=== PATIENT | male | born 1945 | race Hispanic/Latino ===

== ENCOUNTER 2020-09-01 08:20 | Observation (INO) | payer OTHER, SELFPAY ==
[2020-09-01 08:34] VITALS: BP 196/90; PULSE 65; RESP 15; TEMP 36.8; O2SAT 100; BMI 24.4
--- NOTE | 2020-09-01 08:34 | ED.NEUROSD ---
HPI - Neuro Symptoms/Deficit General Chief Complaint: Neuro Symptoms/Deficit Stated Complaint: slurring his words Time Seen by Provider: 09/01/20 08:34 Source: patient and family () Mode of arrival: Ambulatory Limitations: no limitations History of Present Illness HPI Narrative: This is a 75-year-old male comes emergency department with complaint of difficulty with speech, slurring words and feeling little bit off balance. People shunt states he is able to walk but feels like he has to hang onto things to sit down. Patient notes some tingling in his tongue he denies any numbness or tingling elsewhere. He denies any new weakness in his extremities. He does not appreciate any facial droop. Patient states he noticed this 730 this morning, he states that he had gotten out of the shower and as he was trying to talk with his family he noticed he had some mild speech issues. He denies headache, no vision changes, no chest pain or shortness of breath no nausea or vomiting there GI or urinary symptoms. Patient patient is insulin-dependent diabetic, he is on prednisone daily for rheumatoid arthritis, he takes medication for hypertension, dyslipidemia. Patient has had prior strokes noted on his past head imaging but never had physical symptoms. He denies any kidney disease. He had a thoracotomy several decades ago for chest injury denies any other surgery. No tobacco, occasional alcohol, no illicit. His primary care is Dr. Sharmila tenorio at [facility]. Patient denies any allergies to medications. He is accompanied by his . Related Data Home Medications Medication Instructions Recorded Confirmed Novolin 70/30 U-100 Insulin 25 units SUBCUT BEDTIME 09/01/20 09/01/20 Novolin 70/30 U-100 Insulin 35 units SUBCUT DAILY 09/01/20 09/01/20 amlodipine [Norvasc] 2.5 mg PO DAILY 09/01/20 09/01/20 atorvastatin 10 mg PO DAILY 09/01/20 09/01/20 levothyroxine 125 mcg PO DAILY 09/01/20 09/01/20 lisinopril-hydrochlorothiazide 20 - 25 tab PO DAILY 09/01/20 09/01/20 prednisone 1 mg PO DAILY 09/01/20 09/01/20 Allergies Allergy/AdvReac Type Severity Reaction Status Date / Time No Known Drug Allergies Allergy Verified 09/01/20 10:38 Review of Systems Review of Systems ROS Unobtainable: All systems reviewed & are unremarkable except as noted in HPI and below Patient History Medical History (Updated 09/01/20 @ 14:24 by Eligio Chavez MD) Amputation of toe of left foot Hearing loss Hyperlipidemia Hypertension Hypothyroidism Influenza A Parkinsonism Rheumatoid arthritis TIA (transient ischemic attack) Type 2 diabetes mellitus Surgical History (Updated 09/01/20 @ 14:20 by Eligio Chavez MD) H/O amputation of lesser toe History of appendectomy History of lung surgery Family History (Updated 09/01/20 @ 14:22 by Eligio Chavez MD) Father Alcohol abuse Mother Bladder cancer Social History household members: spouse Smoking Status: Never smoker Smoking Status: Never smoker alcohol intake frequency: a few times a month Substance Use Type: does not use Exam Narrative Exam Narrative: GEN: well nourished, well appearing male, alert and oriented x 3, patient appears to be in mild distress. HEENT: Atraumatic, pupils are equal round reactive to light, extraocular movements are intact, nares are clear. no facial droop. Dysarthria. HEART: Regular rate and rhythm without murmur, clicks, rubs. No carotid bruits, pulses are equal in upper and lower extremities LUNGS:Lungs clear to auscultation, no wheezes, rales, crackles, chest moves symmetrically ABD:bowel sounds normal, soft, non-tender, no guarding, rebound, rigidity, no masses noted, no hepatosplenomegaly MSCL: Non-tender, no muscle atrophy, muscles strength 5/5 upper and lower extremities, full range of motion, normal gait NEURO:CN 2-12 intact, sensation normal, finger nose finger test normal, heel anderson test normal Skin: No rash, erythema skin changes. Initial Vital Signs Initial Vital Signs: Vital Signs Temperature 98.2 F 09/01/20 08:34 Pulse Rate 65 09/01/20 08:34 Respiratory Rate 15 09/01/20 08:34 Blood Pressure 196/90 H 09/01/20 08:34 Pulse Oximetry 100 09/01/20 08:34 Scores NIH Stroke Scale Level of Conciousness: Alert, keenly responsive Ask month/age: Answers both questions correctly. Open/close eyes, close hand: Performs both tasks correctly Best gaze horizontal: Normal Visual aguilar: No visual loss Facial palsy: Normal symetrical movement Left arm drift: No drift for full 10 sec Right arm drift: No drift for full 10 sec Left leg drift: No drift for full 5 sec Right leg drift: No drift for full 5 sec Limb ataxia: Absent Sensory on face/arms/legs: Normal, no sensory loss Best language: No aphasia, normal Dysarthria: Mild to mod,some slurring Extinction or inattention: No abnormality Total NIH Stroke scale score: 1 Course Orders Ordered: ED Orders 09/01/20 10:25 COVID19 - ADMIT (MAINTENANCE CARPENTER swab/PCR) Stat 09/01/20 15:00 Urine Drug Screen, Rapid Stat Amlodipine Besylate (Amlodipine 5 Mg Tablet) 2.5 mg PO DAILY EVELIO Aspirin (Aspirin Ec 81 Mg Tablet) 81 mg PO DAILY [facility] Atorvastatin Calcium (Atorvastatin 20 Mg Tablet) 80 mg PO BEDTIME EVELIO Clopidogrel Bisulfate (Clopidogrel 75 Mg Tablet) 75 mg PO DAILY [facility] Enoxaparin Sodium (Enoxaparin 40 Mg/0.4 Ml Syringe) 40 mg SUBCUT DAILY [facility] Hydrochlorothiazide (Hydrochlorothiazide 25 Mg Tablet) 25 mg PO DAILY [facility] Levothyroxine Sodium (Levothyroxine 125 Mcg Tablet) 125 mcg PO DAILY [facility] Lisinopril (Lisinopril 20 Mg Tablet) 20 mg PO DAILY [facility] Naloxone HCl (Naloxone 0.4 Mg/Ml Vial) 0.2 mg IV Q2MIN PRN PRN Reason: Opiate Reversal Nf - Novolin 70/30 U -100 Insulin 35 Units 35 units SUBCUT DAILY [facility] Nf - Novolin 70/30 U -100 Insulin 25 Units 25 units SUBCUT BEDTIME EVELIO Last Admin: 09/01/20 17:12 Dose: 25 units Documented by: MATEO Prednisone (Prednisone 1 Mg Tablet) 1 mg PO DAILY [facility] Discontinued Medications Aspirin (Aspirin 81 Mg Chew Tab) 324 mg PO NOW ONE Stop: 09/01/20 09:56 Last Admin: 09/01/20 14:00 Dose: 324 mg Documented by: RY Clopidogrel Bisulfate (Clopidogrel 75 Mg Tablet) 300 mg PO NOW ONE Stop: 09/01/20 09:56 Last Admin: 09/01/20 14:00 Dose: 300 mg Documented by: RY Glipizide (Glipizide 5 Mg Tablet) 5 mg PO BIDAC EVELIO Sodium Chloride (Normal Saline 0.9%) 1,000 mls @ 150 mls/hr IV CONT EVELIO Last Infusion: 09/01/20 10:55 Dose: 0 mls/hr Documented by: CARLOS EDUARDO Admin: 09/01/20 10:05 Dose: 150 mls/hr Documented by: CARLOS EDUARDO Labetalol HCl (Labetalol 20 Mg/4 Ml Syringe) 5 mg IV NOW ONE Stop: 09/01/20 09:56 Last Admin: 09/01/20 13:58 Dose: Not Given Documented by: RY Reevaluation(s) Reevaluation #1: Neurology from telestroke, does not feel patient is acutely occluded but stenosed. He did review their images of the based on patient's exam he would not tPA this patient at the time. He does recommend high-dose statin as well as Plavix 300 mg and aspirin for dual platelet therapy. He feels patient would be best kept for observation for 24 hours. He does not give recommendation whether they should be transferred or stay locally and would leave this up to our facility and comfort level. Time: 09:56 Reevaluation #2: Dr. Chavez, kindly accepts patient for admission. We did discuss that radiology read the CTA as occluded on the basilar vessel. Tele Stroke Neurology also reviewed these images independently and evaluated the patient physically through the tele stroke video monitor and feels that it is not fully occluded but stenosed/narrowed and does not feel the patient warrants acute intervention. Patient's symptoms today are not consistent with a occluded basilar vessel. Patient was recommended to have observation, dual platelet therapy and high-dose statin. This was all related. Vital Signs Vital signs: Vital Signs - 8 hr 09/01/20 08:34 Temperature 98.2 F Pulse Rate 65 Respiratory Rate 15 Blood Pressure 196/90 H Pulse Oximetry 100 MDM - Neuro Symptoms/Deficit Lab Data Attestation: I reviewed the patient's lab results. Result diagrams: 09/01/20 08:30 09/01/20 08:30 Labs: Lab Results 09/01/20 09/01/20 09/01/20 Range/Units 08:30 08:30 08:30 WBC 9.1 (4.5-11.0) X10^3/uL RBC 4.13 L (4.5-5.9) X10^6/uL Hgb 13.3 L (13.5-17.5) g/dL Hct 38.5 L (41-53) % MCV 93.1 (80-100) fL MCH 32.2 (26-34) PG MCHC 34.6 (30-36) % RDW 15.4 H (11.6-14.8) % Plt Count 219 (150-400) X10^3/uL Neut % (Auto) 67.4 (50-75) % Lymph % (Auto) 21.9 L (25-40) % [place] % (Auto) 5.6 (3-14) % Eos % (Auto) 4.0 (2-4) % Baso % (Auto) 1.1 (0-2) % Neut # (Auto) 6100 (0431-2533) /uL Lymph # (Auto) 2000 (4158-2087) /uL [place] # (Auto) 500 (0-900) /uL Eos # (Auto) 400 (0-450) /uL Baso # (Auto) 100 (0-100) /uL PT 11.9 (10.1-12.7) SECONDS INR 1.1 (0.9-1.3) APTT 33 (26.4-36.2) SECONDS Sodium 134 L (137-145) mmol/L Potassium 4.2 (3.4-5.1) mmol/L Chloride 101 (98-107) mmol/L Carbon Dioxide 24 (22-32) mmol/L BUN 31 H (9-20) mg/dL Creatinine 1.47 H (0.66-1.25) mg/dL Estimated GFR 46.6 L (>60) mL/min BUN/Creatinine Ratio 21.1 (6-22) Glucose 174 H (80-110) mg/dL Hemoglobin A1c (4.0-6.0) % Calcium 9.5 (8.4-10.2) mg/dL Total Creatine Kinase 62 (55-170) U/L CK-MB (CK-2) TNP CK-MB (CK-2) Rel Index TNP Troponin I < 0.012 (0.01-0.034) ng/mL Ethyl Alcohol < 10 ( - 10) mg/dL 09/01/20 Range/Units 08:30 WBC (4.5-11.0) X10^3/uL RBC (4.5-5.9) X10^6/uL Hgb (13.5-17.5) g/dL Hct (41-53) % MCV (80-100) fL MCH (26-34) PG MCHC (30-36) % RDW (11.6-14.8) % Plt Count (150-400) X10^3/uL Neut % (Auto) (50-75) % Lymph % (Auto) (25-40) % [place] % (Auto) (3-14) % Eos % (Auto) (2-4) % Baso % (Auto) (0-2) % Neut # (Auto) (2381-6859) /uL Lymph # (Auto) (5281-1742) /uL [place] # (Auto) (0-900) /uL Eos # (Auto) (0-450) /uL Baso # (Auto) (0-100) /uL PT (10.1-12.7) SECONDS INR (0.9-1.3) APTT (26.4-36.2) SECONDS Sodium (137-145) mmol/L Potassium (3.4-5.1) mmol/L Chloride (98-107) mmol/L Carbon Dioxide (22-32) mmol/L BUN (9-20) mg/dL Creatinine (0.66-1.25) mg/dL Estimated GFR (>60) mL/min BUN/Creatinine Ratio (6-22) Glucose (80-110) mg/dL Hemoglobin A1c 9.7 H (4.0-6.0) % Calcium (8.4-10.2) mg/dL Total Creatine Kinase (55-170) U/L CK-MB (CK-2) CK-MB (CK-2) Rel Index Troponin I (0.01-0.034) ng/mL Ethyl Alcohol ( - 10) mg/dL ECG Data Attestation: I personally reviewed and interpreted this ECG as follows: Prior ECG tracings: available for review Interpretation: Sinus rhythm with premature supraventricular complexes, right bundle branch block. Rate of 61 P are 202 QRS of [address]TC [address] No acute ST changes appreciated. Patient has prior which appears similar. MDM Narrative Medical decision making narrative: This is a 75-year-old male comes in with complaint of dysarthria, some tingling his tongue and mild balance symptoms. Patient denies any other symptoms currently. He states his symptoms seem to be mildly improving. He is a hypertensive at 187 in the room. NIH is 1 patient has normal gait. Head CT does not show any acute changes, CTA shows possible basilar artery occlusion but discussed with tele radiology who feels this is stenosed but not occluded. Patient was given aspirin and Plavix here in the department. Recommendations were reviewed led to our hospitalist who kindly accepts. Patient was not a tPA case with NIH of only 1, resolving symptoms here in the department. Discharge Plan Departure Patient Disposition: Admitted as Observation Clinical Impression: Cerebrovascular accident, Basilar artery stenosis Admit Date/Time: 09/01/20 10:09 Admit Provider: Eligio Chavez
--- NOTE | 2020-09-01 08:35 | DI.CT.S_ITS ---
PROCEDURE: CT STROKE INDICATIONS: slurred speech, balance issues. TECHNIQUE: Noncontrast 4.5 mm thick angled axial sections acquired from the foramen magnum to the vertex, with coronal reformats. For radiation dose reduction, the following was used: automated exposure control, adjustment of mA and/or kV according to patient size. COMPARISON: None. FINDINGS: Image quality: Excellent. CSF spaces: Basal cisterns are patent. No extra-axial fluid collections. The ventricles are symmetric in size and shape. Brain: No intracranial bleeds or masses. There is moderate cerebral volume loss for age, with resultant ventricular and sulcal prominence. There are prominent periventricular and deep white matter chronic small vessel ischemic changes. There is intracranial internal carotid artery atherosclerosis. Skull and face: Calvarium and visualized facial bones appear intact, without suspicious lesions. Sinuses: Scattered ethmoid and bilateral maxillary sinus mucosal thickening. Remaining paranasal sinuses and mastoids appear clear. IMPRESSION: CT head without acute intracranial abnormalities. Moderate age related senescent changes and sequela of chronic small vessel ischemic disease. Findings were discussed with Dr. Padilla of the emergency room at 0931 hrs. This study fulfills neurological imaging criteria for inclusion or exclusion of acute stroke therapies based on available published neurological guidelines. Dictated by: Rojas Solomon M.D. on 09/01/2020 at 9:27 Approved by: Rojas Solomon M.D. on 09/01/2020 at 9:32
[2020-09-01 08:43] LABS: Add Manual Diff / Slide Review NO; Basophils Absolute Auto 100 /uL (0-100); Basophils Percent Auto 1.1 % (0-2); Eosinophils Absolute Auto 400 /uL (0-450); Hematocrit 38.5 % (41-53); Hemoglobin 13.3 g/dL (13.5-17.5); Lymphocytes Absolute Auto 2000 /uL (1100-4500); Lymphocytes Percent Auto 21.9 % (25-40); Mean Corpuscular HGB Conc 34.6 % (30-36); Mean Corpuscular Hemoglobin 32.2 PG (26-34); Mean Corpuscular Volume 93.1 fL (80-100); Monocytes Absolute Auto 500 /uL (0-900); Monocytes Percent Auto 5.6 % (3-14); Neutrophils Absolute Auto 6100 /uL (1500-7000); Neutrophils Percent Auto 67.4 % (50-75); Platelet Count 219 X10^3/uL (150-400); Red Blood Cell Count 4.13 X10^6/uL (4.5-5.9); Red Cell Distribution Width 15.4 % (11.6-14.8); White Blood Cell Count 9.1 X10^3/uL (4.5-11.0)
--- NOTE | 2020-09-01 08:48 | DI.CT.S_ITS ---
PROCEDURE: CT ANGIO HEAD AND NECK INDICATIONS: dysarthria, balance issues TECHNIQUE: After the administration of intravenous contrast, 1 mm thick sections acquired from the aortic arch through the [place]. Post-contrast 4.5 mm thick sections then re-acquired from the foramen magnum to the vertex. 3-dimensional zkhkhhh-tykdosiip-ddxocaypwz (MIP) and/or volume rendering reformats were acquired of the central intracranial vasculature and neck separately. COMPARISON: [facility], CT, CT STROKE, 09/01/2020, 8:43. FINDINGS: Image quality: Excellent. BRAIN: CSF spaces: Ventricles are normal in size and shape. Basal cisterns are patent. No extra-axial fluid collections. Brain: No midline shift. No intracranial bleeds or masses. Mcpherson-white matter interface appears intact. Skull and face: Calvarium and facial bones appear intact, without suspicious lesions. Orbits appear normal. Age-related volume loss and moderate to severe small vessel ischemic change. Sinuses: Sinuses and mastoids are clear. Previous nasal sinus surgery. HEAD CT ANGIOGRAPHY: Anterior circulation: Intracranial internal carotid arteries are normal in size and flow. The flow within the paired anterior cerebral arteries is normal and symmetric. The flow within the middle cerebral arteries is normal and symmetric. The anterior communicating artery is seen. No aneurysms are seen. Posterior circulation: The distal left vertebral artery is visible. The right vertebral artery appears to end in PICA, or may be occluded. There is occlusion of basilar artery. There is reconstitution at the distal basilar artery . The right posterior cerebral artery is patent. The left posterior cerebral artery has a origin off of the anterior circulation and is patent. NECK CT ANGIOGRAPHY: Carotid system: The great vessels demonstrate a bovine arch anatomy as they arise from the aortic arch. The origins of the common carotid arteries appear patent. The common carotid arteries demonstrate normal caliber and courses. Dense bilateral carotid bifurcation calcifications. A proximal right internal carotid artery stenosis may be as much as 70%. There is mild left internal carotid stenosis, less than 50%. Posterior circulation: The bilateral vertebral arteries are diffusely diminutive from their origins. The right vertebral artery appears to end in PICA. The left vertebral artery supplies a relatively small basilar artery which acutely occludes, and reconstitutes distally. The right posterior cerebral artery is widely patent. The left posterior cerebral artery has a origin off the anterior circulation, and is patent. Soft tissues: Visualized neck soft tissues demonstrate no suspicious abnormalities. There is bilateral pulmonary fibrosis and biapical centrilobular emphysema. There is a large cystic space anterior to the aorta and heart which likely represents a anterior left lung bullous lesion. Bones: No suspicious bony lesions. Visualized cervical spine appears normally aligned. IMPRESSION: 1. Age-related volume loss and moderate to severe small vessel ischemic change 2. No evidence acute stroke, hemorrhage, or mass. 3. Both vertebral arteries are diffusely diminutive. The right vertebral artery appears to end in PICA. 4. 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 5. Both posterior cerebral arteries are patent. The left posterior cerebral artery has a origin off the anterior circulation. 6. A proximal right internal carotid artery stenosis may be is greatest 70%. 7. Pulmonary interstitial fibrosis and centrilobular emphysema. 8. Large bullous lesion likely involving the anterior left lung, anterior to the aorta and heart. Comment: The finding of an acute occlusion of the basilar artery was discussed with Dr. Padilla on 09/01/20 at 0847 hours [place] daylight time Any quantitative measurements of stenosis were performed using NASCET criteria. Dictated by: Fuentes Chavez M.D. on 09/01/2020 at 8:39 Approved by: Fuentes Chavez M.D. on 09/01/2020 at 8:58
[2020-09-01 08:54] LABS: BUN Creatinine Ratio 21.1 (6-22); Blood Urea Nitrogen 31 mg/dL (9-20); Calcium 9.5 mg/dL (8.4-10.2); Carbon Dioxide 24 mmol/L (22-32); Chloride 101 mmol/L (98-107); Creatine Kinase 62 U/L (55-170); Estimated Glomerular Filt Rate 46.6 mL/min (>60); Ethanol (ETOH) < 10 mg/dL; Glucose 174 mg/dL (80-110); HEMOLYSIS < 15 (0-50); Potassium 4.2 mmol/L (3.4-5.1); Sodium 134 mmol/L (137-145)
[2020-09-01 09:05] LABS: INR 1.1 (0.9-1.3); Prothrombin Time 11.9 SECONDS (10.1-12.7); Troponin I < 0.012 ng/mL (0.01-0.034)
[2020-09-01 09:08] LABS: PTT Partial Thromboplastin Tim 33 SECONDS (26.4-36.2)
--- NOTE | 2020-09-01 10:00 | DI.MRI.S_ITS ---
PROCEDURE: MR STROKE Pre- and post-contrast brain MRI, non-contrast brain MR angiogram, pre- and postcontrast neck MR angiogram INDICATIONS: cva, mild dysarthria, mild balance change TECHNIQUE: Brain: Noncontrast axial T1 spin echo, axial T2 fast spin echo, sagittal and axial FLAIR, coronal T2 fast spin echo, axial gradient echo, axial diffusion and ADC through the brain. After the administration of contrast, axial 3D VIBE of the cranial vasculature and brain. Brain MRA: Non-contrast 3-D time of flight MR angiogram, with multiple xklfbuk-nvynxeqsy-diufsloswb (MIP) reformats performed. Neck MRA: Axial and sagittal TruFISP through the neck. Coronal dynamic MR angiogram during administration of contrast in the arterial and venous phases, with 3-dimenstional vftentl-hmscuutst-xneggdqipe (MIP) reformats constructed from subtraction images. [facility], CT, CT STROKE, 09/01/2020, 8:43. ARISON: FINDINGS: Image quality: Excellent. BRAIN: CSF spaces: Ventricles are normal in size and shape. Basal cisterns are patent. No extra-axial fluid collections. Brain: No intracranial bleeds or mass effects. Mcpherson-white matter interface is normal. Age-related volume loss and moderate to severe small vessel ischemic change. Diffusion weighted images show no acute ischemic insults. Brainstem appears normal. Normal intravascular flow voids are present. No abnormal intracranial enhancement. Skull and face: Calvarial marrow signal is normal. Orbits appear normal. Sinuses: Minimal patchy right mastoid opacification. BRAIN MR ANGIOGRAM: Anterior circulation: Intracranial internal carotid arteries are normal in size and enhancement. The flow within the paired anterior cerebral arteries is normal and symmetric. The flow within the middle cerebral arteries is normal and symmetric. The anterior communicating artery is seen. No stenoses, occlusions, or aneurysms. Posterior circulation: Vertebral arteries are somewhat diminutive bilaterally. The right vertebral artery ends in PICA. The left vertebral artery gives rise to a small caliber basilar artery which occludes. Most of the basilar artery is occluded. There is reconstitution at the level of the origin of the posterior cerebral arteries. The right posterior cerebral artery arises off the basilar artery. The left posterior cerebral artery has a component from the basilar artery but is predominantly from origin off the anterior circulation. NECK MR ANGIOGRAM: Carotids: Great vessels demonstrate a bovine arch anatomy as they arise from the aortic arch. The origins of the common carotid arteries appear patent. The calibers and courses of both common carotid arteries are normal. There is a 70% proximal right internal carotid artery stenosis. The left internal carotid artery is patent. Posterior circulation: The origins of the vertebral arteries appear patent. More superior portions of both vertebral arteries demonstrate normal course and caliber, and join to form a normal appearing basilar artery. Miscellaneous: Subclavian arteries appear patent. Pre-contrast images through the neck show no soft tissue abnormalities. IMPRESSION: BRAIN MRI: 1. Age-related volume loss and moderate to severe small vessel is. 2. No evidence of acute stroke, hemorrhage, or mass. BRAIN MR ANGIOGRAM: 1. Normal variant right vertebral artery ends in PICA and right A1 segment anterior cerebral artery is atretic. 2. 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 3. Posterior cerebral arteries are patent. The left posterior cerebral artery is predominantly fed from the anterior circulation. NECK MR ANGIOGRAM: 1. 70% proximal right internal carotid artery stenosis. 2. Bovine arch anatomy. Comment: Findings were discussed with Dr. Padilla at the time of study dictation on 09/01/2020 at 1033 hours [place] daylight time. Dictated by: Fuentes Chavez M.D. on 09/01/2020 at 10:22 Approved by: Fuentes Chavez M.D. on 09/01/2020 at 10:40
[2020-09-01] MEDS: SODIUM CHLORIDE 0.9% 1,000 ML 150 ML IV (10:05)
[2020-09-01 11:00] VITALS: BP 149/84; PULSE 70; RESP 18; TEMP 36.6; O2SAT 98
[2020-09-01 11:18] VITALS: BMI 24.4
[2020-09-01 11:40] LABS: Hemoglobin A1C% w Est Avg Glu 9.7 % (4.0-6.0)
[2020-09-01 11:49] LABS: COVID19 - ADMIT (NP swab/PCR) Negative (Negative)
--- NOTE | 2020-09-01 12:10 | P.HP_ITS ---
History of Present Illness History of Present Illness Date Patient Seen: 09/01/20 Time Patient Seen: 12:15 Chief complaint: slurring his words Narrative: This is a 75-year-old male with hypertension, hyperlipidemia, type 2 diabetes mellitus, a history of TIA and Rheumatoid Arthritis who is admitted for an acute episode of dysarthria. He lives in [place] and was camping locally here with his this morning when they both noticed that he could not pronounce words correctly. He had particular difficulty with the letter S. This began at 7:30 a.m.. He came directly to the ED within the tPA window but the CT angiogram of the neck did not show any stroke and the basilar artery occlusion or stenosis was not in an area that would cause his current symptoms and so the tele [facility] neurologist recommended no tPA (also because the symptoms were so mild and the dysarthria resolved so quickly). 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 He has neurological findings of a left- sided downgoing Babinski and a right tongue deviation that would appear to match a a right-sided lesion caused by the carotid stenosis on the same side. No matching stroke is seen on the MRI. He will be observed on telemetry, we will obtain an echocardiogram and Plavix has been added to his aspirin as recommended by Neurology. The atorvastatin dose will be increased from 10 mg up to 80 mg and his blood pressure medicines will be continued. The A1c is 9.7. The p atient does not appear to be on any treatment for diabetes. Patient History Medical History (Updated 09/01/20 @ 14:24 by Eligio Chavez MD) Amputation of toe of left foot Hearing loss Hyperlipidemia Hypertension Hypothyroidism Influenza A Parkinsonism Rheumatoid arthritis TIA (transient ischemic attack) Type 2 diabetes mellitus Surgical History (Updated 09/01/20 @ 14:20 by Eligio Chavez MD) H/O amputation of lesser toe History of appendectomy History of lung surgery Family & Social History Family History (Updated 09/01/20 @ 14:22 by Eligio Chavez MD) Father Alcohol abuse Mother Bladder cancer Social History: household members spouse Prior Living Arrangements House Safety & Behavioral: Feels Safe in Current Yes Environment Been Physically Hurt or No Threatened By a Person Suicidal Ideation Description None Suicide Plan Description No Plan Tobacco & Substance use: Smoking Status Never smoker alcohol intake frequency a few times a month Substance Use Type does not use Meds Home Medications and Allergies Home Medications Medication Instructions Recorded Confirmed Type Novolin 70/30 U-100 Insulin 35 units SUBCUT DAILY 09/01/20 09/01/20 History amlodipine [Norvasc] 2.5 mg PO DAILY 09/01/20 09/01/20 History atorvastatin 10 mg PO DAILY 09/01/20 09/01/20 History levothyroxine 125 mcg PO DAILY 09/01/20 09/01/20 History lisinopril-hydrochlorothiazide 20 - 25 tab PO DAILY 09/01/20 09/01/20 History prednisone 1 mg PO DAILY 09/01/20 09/01/20 History Allergies Allergy/AdvReac Type Severity Reaction Status Date / Time No Known Drug Allergies Allergy Verified 09/01/20 10:38 Review of Systems Review of Systems Narrative: Positive for dysarthria, slurring of words. Negative for fevers, chills, sweats, coughing, chest pain, dull pain, nausea, vomiting, dysuria, bleeding, rashes, seizures, headaches, trouble walking, new allergies. ROS: Yes All systems reviewed with the patient and are negative except as otherwise documented Exam Vital Signs (past 8 hours): - 09/01/20 08:34 Temperature 98.2 F Pulse Rate 65 Respiratory Rate 15 Blood Pressure 196/90 H Pulse Oximetry 100 Oxygen Delivery Method Room Air Narrative Exam Narrative: He is alert and oriented x3. He is in no apparent distress Pupils are equally round and reactive to light and accommodation Sclerae are pink and nonicteric Extraocular muscles are intact Throat looks normal with slight right-sided tongue deviation No lymph nodes are felt head, neck, supraclavicular area There is no thyromegaly JVD is less than 6 cm No carotid bruits are heard Heart is regular rate and rhythm without murmur Lungs have bibasilar crackles Abdomen is soft, bowel sounds positive, nontender, no organomegaly. Skin has no rash or jaundice Neurological exam Motor function is 5/5 throughout Cranial nerves 2-12 test intact except for slight right-sided tongue deviation Deep tender reflexes are symmetric There is no tremor [id number] pointing is accurate Babinski is upgoing slightly on the left and downgoing on the right Objective Imaging MRI - head: Radiologist's impression: IMPRESSION: BRAIN MRI: 1. Age-related volume loss and moderate to severe small vessel is. 2. No evidence of acute stroke, hemorrhage, or mass. BRAIN MR ANGIOGRAM: 1. Normal variant right vertebral artery ends in PICA and right A1 segment anterior cerebral artery is atretic. 2. 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 3. Posterior cerebral arteries are patent. The left posterior cerebral artery is predominantly fed from the anterior circulation. NECK MR ANGIOGRAM: 1. 70% proximal right internal carotid artery stenosis. 2. Bovine arch anatomy. Labs Result Diagrams: 09/01/20 08:30 09/01/20 08:30 Labs: Laboratory Results - last 24 hr 09/01/20 09/01/20 09/01/20 08:30 08:30 08:30 WBC 9.1 RBC 4.13 L Hgb 13.3 L Hct 38.5 L MCV 93.1 MCH 32.2 MCHC 34.6 RDW 15.4 H Plt Count 219 Neut % (Auto) 67.4 Lymph % (Auto) 21.9 L Charles % (Auto) 5.6 Eos % (Auto) 4.0 Baso % (Auto) 1.1 Neut # (Auto) 6100 Lymph # (Auto) 2000 Charles # (Auto) 500 Eos # (Auto) 400 Baso # (Auto) 100 PT 11.9 INR 1.1 APTT 33 Sodium 134 L Potassium 4.2 Chloride 101 Carbon Dioxide 24 BUN 31 H Creatinine 1.47 H Estimated GFR 46.6 L BUN/Creatinine Ratio 21.1 Glucose 174 H Hemoglobin A1c Calcium 9.5 Total Creatine Kinase 62 CK-MB (CK-2) TNP CK-MB (CK-2) Rel Index TNP Troponin I < 0.012 Ethyl Alcohol < 10 SARS-CoV-2 (PCR) 09/01/20 09/01/20 08:30 10:25 WBC RBC Hgb Hct MCV MCH MCHC RDW Plt Count Neut % (Auto) Lymph % (Auto) Charles % (Auto) Eos % (Auto) Baso % (Auto) Neut # (Auto) Lymph # (Auto) Charles # (Auto) Eos # (Auto) Baso # (Auto) PT INR APTT Sodium Potassium Chloride Carbon Dioxide BUN Creatinine Estimated GFR BUN/Creatinine Ratio Glucose Hemoglobin A1c 9.7 H Calcium Total Creatine Kinase CK-MB (CK-2) CK-MB (CK-2) Rel Index Troponin I Ethyl Alcohol SARS-CoV-2 (PCR) Negative Assessment & Plan Assessment & Plan narrative: This is a 75-year-old male with hypertension, hyperlipidemia, type 2 diabetes mellitus, a history of TIA and Rheumatoid Arthritis who is admitted for an acute episode of dysarthria. TIA, present on admission. Active. -dysarthria with abnormal neurological exam of upgoing left Babinski and right- sided tongue deviation. -MRA shows 70% stenosis of of the right internal carotid artery, also seen on the CT angiogram of the neck. -brain MRI shows no acute CVA -add Plavix 75 mg to the daily aspirin 81 mg per Neurology. -continue blood pressure control with current medications -add glipizide for uncontrolled diabetes type 2 -increase atorvastatin to 80 mg Hypertension, present on admission. Active. -continue amlodipine, lisinopril, hydrochlorothiazide Hyperlipidemia, present on admission. Active. -increase atorvastatin to 80 mg a day Type 2 diabetes mellitus, present on admission. Active. -A1c 9.7 -no current treatment -began glipizide 5 mg b.i.d. and follow blood sugars a.c. and HS Rheumatoid arthritis, present on admission. Chronic -continue prednisone 1 mg daily Hypothyroidism, present on admission. Chronic. -continue levothyroxine Parkinsonism, present on admission. Chronic. -no current treatment Lovenox for DVT prophylaxis Backup decision maker is his , Chantelle Palmer Arvin VTE Deep Vein Thrombosis/Pulmonary Embolism Present on Admission: No
[2020-09-01] MEDS: ASPIRIN 81 MG CHEW TAB 324 MG PO (14:00)
[2020-09-01] MEDS: CLOPIDOGREL 75 MG TABLET 300 MG PO (14:00)
--- NOTE | 2020-09-01 14:14 | DI.ECHO.S_ITS ---
[facility] +---------+ : : [address] : : : : [id number] : : : : Phone: [phone]+ Echocardiogram Report + + :Name: SHAUN WHEAT Study Date: 09/02/2020 Height: 73 in : :[facility] ReadingLocation: Weight: 185 lb : : Gender: Male BSA: 2.1 m2 : :: 1945 Age: 75 yrs BP: 150/79 mmHg: :Reason For Study: TIA : :Ordering Physician: DALIA, : :MARYURI Ann Performed By: Nani Meyers : :Referring: MARYURI GÓMEZ : + + Interpretation Summary Left ventricular systolic function appears normal with an estimated ejection fraction of 55 to 60% without any obvious focal wall motion abnormality. Left ventricular size and wall thickness appear normal with probable normal diastolic function and normal filling pressures. The right ventricle grossly appears normal in size and systolic function. Right ventricular systolic pressure cannot be estimated but CVP is likely around 3 mmHg. The left atrium is at the upper limits of normal in size while right atrial size is normal. There is no Doppler evidence for an interatrial shunt. The mitral valve is mildly calcified with mild mitral regurgitation but there is no other significant functional valvular abnormality. The aortic root is mildly enlarged. Procedure: A two-dimensional transthoracic echocardiogram with color flow and Doppler was performed. The study quality was technically adequate. There is no prior echocardiogram noted for this patient. The patient was in sinus bradycardia with heart rates between 49-57 bpm during the exam. Left Ventricle: The left ventricle appears normal in size, wall thickness, and systolic function without any focal wall motion abnormalities. The ejection fraction is estimated to be 55-60%. Diastolic parameters suggest probable normal left ventricular diastolic function and normal filling pressures. Right Ventricle: The right ventricle is grossly normal size. The right ventricular systolic function is normal. Atria: The left atrium is borderline dilated. Right atrial size is normal. There is no Doppler evidence for an interatrial shunt. Mitral Valve: The mitral valve leaflets are slightly calcified. There is mild mitral regurgitation. Aortic Valve: The aortic valve is not well visualized. The aortic valve is slightly calcified. The aortic valve opens well. There is no aortic valve stenosis. No aortic regurgitation is present. Tricuspid Valve: The tricuspid valve is normal in structure and function. There is trace tricuspid regurgitation. Pulmonary artery pressures cannot be estimated because of the lack of a measurable TR jet velocity but the IVC suggests a CVP of around 3 mmHg. Pulmonic Valve: The pulmonic valve is not well visualized. Great Vessels: The aortic root is mildly dilated. The ascending aorta could not be visualized. The IVC is of normal diameter and collapses greater than 50% with a sniff. This suggests a low right atrial pressure of 3 mm Hg. Pericardium/ Pleura There is no pericardial effusion. There is no pleural effusion. MMode/2D Measurements & Calculations LVIDd: 5.3 cm LVOT diam: 2.4 cm LVIDs: 3.5 cm Ao root diam: 4.0 cm FS: 34.3 % Ao Arch Diam (Prox Trans): 3.1 cm IVSd: 0.95 cm LVPWd: 0.84 cm LV carlin. diameter/BSA (cm/m^2): 2.6 LV sys. diameter/BSA (cm/m^2): 1.7 LA A2 area: 21.7 cm2 RA long axis: 5.1 cm LA A4 area: 18.0 cm2 RA area: 15.2 cm2 LA length (vol): 4.7 cm RA vol: 38.4 ml LA vol: 70.3 ml RA : 18.5 ml/m2 LA vol index: 33.8 ml/m2 IVC diam: 1.5 cm RVD1 (basal): 4.0 cm TAPSE: 1.9 cm Doppler Measurements & Calculations Ao V2 max: 119.0 cm/sec LVOT Max Jay: 70.5 cm/sec Ao V2 mean: 81.7 cm/sec LV V1 max P.0 mmHg Ao max P.7 mmHg LV V1 VTI: 18.4 cm Ao mean P.0 mmHg CINTHYA(I,D): 2.7 cm2 Ao V2 VTI: 30.2 cm CINTHYA(V,D): 2.6 cm2 sev ratio: 0.61 CINTHYA indexed to BSA (cm^2/m^2): 1.3 MV E max jay: 75.8 cm/sec TR max jay: 285.4 cm/sec MV A max jay: 75.0 cm/sec TR max P.6 mmHg MV E/A: 1.0 PA V2 max: 72.8 cm/sec Med Peak E' Jay: 9.4 cm/sec PA V2 mean: 48.7 cm/sec E/E' med: 8.1 PA mean P.1 mmHg Lat Peak E' Jay: 8.5 cm/sec PA pr(Accel): 12.2 mmHg E/E' lat: 8.9 E/e' average: 8.5 MV dec time: 0.22 sec SV(ZENIA): 81.7 ml Reading Physician:09:30 AM
[2020-09-01 15:11] LABS: UR Morphine/Opiate cutoff 300 Negative (Negative); Ur Creatinine Normal (Normal); Ur Specific Gravity Normal (Normal); Urine Amphetamines Negative (Negative); Urine Barbiturates Negative (Negative); Urine Benzodiazepines Negative (Negative); Urine Cocaine Negative (Negative); Urine MDMA Negative (Negative); Urine Methadone Negative (Negative); Urine Methamphetamines Negative (Negative); Urine Oxycodone Negative (Negative); Urine Phencyclidine Negative (Negative); Urine Tetrahydrocannabinol Negative (Negative); Urine Tricyclic Antidepressant Negative (Negative); Urine pH Normal (Normal)
[2020-09-01 16:10] VITALS: BP 150/79; PULSE 56; RESP 16; TEMP 36.4; O2SAT 98
[2020-09-01] MEDS: [UNRECOGNIZED DRUG - OTHER] 25 EACH SUBCUT (17:12)
[2020-09-01 20:05] VITALS: BP 155/75; PULSE 66; RESP 17; TEMP 36.6; O2SAT 96
[2020-09-01] MEDS: ATORVASTATIN 20 MG TABLET 80 MG PO (21:00)
--- NOTE | 2020-09-02 00:07 | PC.NURSE ---
Addendum entered by Fern Christopher R.N. 09/02/20 02:14: Woke pt to begin iv fluids as ordered. BL calf scd's placed as order. Pt sits up @ bedside for urinal use. Tele in place. Denies pain. Slightly hard of hearing, but able to make needs and wants known to staff members. Original Note: Pt resting quietly in bed on left side. Will allow for uninterrupted sleep @ this time.
[2020-09-02] MEDS: LACTATED RINGERS 1,000 ML 84 ML IV (01:24)
[2020-09-02 01:45] VITALS: BP 160/79; PULSE 62; RESP 16; TEMP 36.7; O2SAT 97
[2020-09-02 05:00] VITALS: BP 149/74; PULSE 62; RESP 16; TEMP 36.6; O2SAT 95
[2020-09-02 05:23] LABS: BUN Creatinine Ratio 22.1 (6-22); Blood Urea Nitrogen 29 mg/dL (9-20); Calcium 9.1 mg/dL (8.4-10.2); Carbon Dioxide 28 mmol/L (22-32); Chloride 103 mmol/L (98-107); Estimated Glomerular Filt Rate 53.2 mL/min (>60); Glucose 214 mg/dL (80-110); HEMOLYSIS < 15 (0-50); Potassium 4.3 mmol/L (3.4-5.1); Sodium 135 mmol/L (137-145)
[2020-09-02 06:45] LABS: Add Manual Diff / Slide Review NO; Basophils Absolute Auto 100 /uL (0-100); Eosinophils Absolute Auto 400 /uL (0-450); Eosinophils Percent Auto 4.6 % (2-4); Hematocrit 35.5 % (41-53); Hemoglobin 12.5 g/dL (13.5-17.5); Lymphocytes Absolute Auto 1700 /uL (1100-4500); Lymphocytes Percent Auto 20.3 % (25-40); Mean Corpuscular HGB Conc 35.2 % (30-36); Mean Corpuscular Hemoglobin 32.9 PG (26-34); Mean Corpuscular Volume 93.5 fL (80-100); Monocytes Absolute Auto 500 /uL (0-900); Monocytes Percent Auto 5.9 % (3-14); Neutrophils Absolute Auto 5800 /uL (1500-7000); Neutrophils Percent Auto 68.2 % (50-75); Platelet Count 198 X10^3/uL (150-400); Red Cell Distribution Width 14.8 % (11.6-14.8); White Blood Cell Count 8.4 X10^3/uL (4.5-11.0)
[2020-09-02 08:00] VITALS: BP 147/76; PULSE 57; RESP 16; TEMP 36.6; O2SAT 96
[2020-09-02] MEDS: INSULIN ISOPHANE SUBCUT (08:59)
[2020-09-02] MEDS: [UNRECOGNIZED DRUG - OTHER] SUBCUT (08:59)
[2020-09-02] MEDS: INSULIN REGULAR SUBCUT (08:59)
--- NOTE | 2020-09-02 09:15 | OT.IP.EVAL ---
Past Medical History (Last Updated 09/01/20 @ 14:24 by Eligio Chavez MD) Amputation of toe of left foot Hearing loss Hyperlipidemia Hypertension Hypothyroidism Influenza A Parkinsonism Rheumatoid arthritis TIA (transient ischemic attack) Type 2 diabetes mellitus Surgical History (Last Updated 09/01/20 @ 14:20 by Eligio Chavez MD) H/O amputation of lesser toe History of appendectomy History of lung surgery Occupational Therapy Inpatient Evaluation/Re-Eval M1 PT/OT-IP Prior Functional Status Start: 09/02/20 09:56 Freq: NEEDED Status: Active Protocol: Document 09/02/20 09:56 CGR (Rec: 09/02/20 10:05 [facility] [id number]) Medical Review Prior Functional Status Medical History Reviewed Yes Communication Pt is an effective verbal communicator. Mobility and Gait Pt was IND in all mobility without AD Activities of Daily Living and IADL's Pt was IND in all ADLs without AD Social History Household Members spouse Living Arrangements House Number of Floors (Floors) One Floor Number of Stairs To Enter/Railing? No steps Home Environment Standard Height Toilet,Walk in Shower Employment Status Retired Additional Social History Comment Pt and spouse are camping in the area at this time but live in [place]. M2 OT-IP Current Condition Start: 09/02/20 09:56 Freq: Status: Active Protocol: Document 09/02/20 09:56 CGR (Rec: 09/02/20 10:05 [facility] [id number]) Occupational Therapy Current Condition Current Condition Evaluation Date 09/02/20 Treatment Diagnosis acute dysarthria Diagnosis Onset Date 09/01/20 M3 OT- IP Subjective and Pain Start: 09/02/20 09:56 Freq: Status: Active Protocol: Document 09/02/20 09:56 CGR (Rec: 09/02/20 10:05 R [id number]) OT- Subjective Occupational Therapy Visit Type Type Initial Evaluation Visit Start Time 08:59 Visit Stop Time 09:15 Total Visit Minutes 16 Notes Pt's spouse present throughout session OT Pain Assessment Pain When Pain Assessed At Rest Pain Present Pain Present Denied Pain M4 OT- IP ADL's Start: 09/02/20 09:56 Freq: Status: Active Protocol: Document 09/02/20 09:56 CGR (Rec: 09/02/20 10:05 R [id number]) OT [id number] Comments OT Self-Feeding Comments Not meal time OT ADL-Grooming General Evaluation Grooming Ability Independent OT ADL-Oral Care Comments Oral Care Comments Not performed OT ADL-Dressing General Eval Upper Body Dressing Ability Independent Lower Body Dressing Ability Independent Areas Needing Assistance Socks OT ADL-Toileting General Evaluation Toileting Ability Independent OT ADL-Bathing Bathing Type Bathing Type Shower General Evaluation Bathing Ability Independent Comments OT Bathing Comments Pt set up for shower and left showering as pt was IND. Notified nursing and practical nursing instructor that pt was in shower. M5 OT- IP IADL's Start: 09/02/20 09:56 Freq: Status: Active Protocol: Document 09/02/20 09:56 CGR (Rec: 09/02/20 10:05 [facility] [id number]) OT-Instrumental Activities of Daily Living Deficits IADL Deficits Identified No Deficits Home Safety Awareness Awareness of Need for Assistance at Home Good Awareness Ability to Problem Solve Emergency Able to Problem Solve Situations Medication Management Medication Management No Deficits Identified Money Management Money Management No Deficits Identified Meal Preparation Meal Preparation No Deficits Identified Food Preservation Scientist Food Preservation Scientist No Deficits Identified Driving Driving Comments 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 M6 OT- IP Functional Cognition Start: 09/02/20 09:56 Freq: Status: Active Protocol: Document 09/02/20 09:56 CGR (Rec: 09/02/20 10:05 R [id number]) Cognitive Factors Limiting Selfcare Function Cognitive Ability Level of Alertness Alert Patient Orientation Name,Age,Birthday,Month,Date, Year,Day of Week,Place, Situation Attention Span Ability Capable of Focused Attention, Capable of Sustained Attention Ability to Follow Commands Able to Follow Multi-Step Commands OT- Vision and Hearing OT- Hearing Assessment OT- Hearing Assessment Hearing Impaired,Use of Hearing Aids OT- Vision Assessment Visual Acuity Glasses All The Time Visual Attentiveness WFL Occular Pursuits WFL Visual Convergence WFL M7 OT- IP Mobility and Balance Start: 09/02/20 09:56 Freq: Status: Active Protocol: Document 09/02/20 09:56 CGR (Rec: 09/02/20 10:05 R [id number]) OT- Bed Mobility Assessment Rolling Level of Assistance Independent Supine to Sit Supine to Sit Assist Independent Scooting Scooting to Edge of Bed Independent OT-Transfer Assessment Sit to and From Stand Sit to and from Stand Independent Transfers Transfer Ability Independent Technique Transfer Destination Bed,Shower Stall,Toilet Transfer Technique Stand Step Pivot Devices Transfer Assistive Devices None Comments Mobility Comments Pt is IND in his mobility. Pt has a slight forward flexed posture that pt's states is his typical posture. OT- Gait Assessment Gait Gait Assistance Required: Independent Assistive Devices Assistive Device None Comments Gait Ability Comments Mobility around the room and bathroom OT- Balance Assessment Sitting Balance and Reactions Static Sitting Balance Ability Normal Dynamic Sitting Balance Ability Normal Standing Balance and Reactions Static Standing Balance Ability Normal Dynamic Standing Balance Ability Normal M8 OT- IP Objective Assessments Start: 09/02/20 09:56 Freq: Status: Active Protocol: Document 09/02/20 09:56 CGR (Rec: 09/02/20 10:05 CGR [id number]) OT Gross Range of Motion Upper Extremity Range of Motion Assessment Within Functional Limits ROM Impairments Noted swan necking to the fingers of the L hand OT Strength Upper Extremity Strength Assessment Within Functional Limits Comments Strength Comments grossly 4+/5 OT- Coordination Assessment Upper Extremity Finger to Nose Test Within Functional Limits Finger Tapping Test Within Functional Limits OT-Muscle Tone Assessment Muscle Tone WNL Yes OT Sensation Assessment Edema Edema Absent M9 OT- IP Assessment and Plan Start: 09/02/20 09:56 Freq: Status: Active Protocol: Document 09/02/20 09:56 CGR (Rec: 09/02/20 10:05 CGR [id number]) OT Summary Assessment and Plan Potential Rehabilitation Potential Excellent Analytic Complexity at Evaluation Low Summary Progress Towards Goals Goals Met Assessment Summary Pt presents as a low complexity evaluation s/p admit for acute dysarthria with concerns for CVA vs TIA. Pt presents on this day at his baseline. No further OT needs . Frequency of Treatment Frequency Of Treatment Discharge Discharge Recommendations OT Discharge Recommendations Home Transportation Needs at Discharge Private Vehicle
--- NOTE | 2020-09-02 09:32 | SLP.IPNOTE ---
TESTING AND REGULATING CHIEF orders received and chart reviewed. Attempted to see pt for evaluation but pt was showering. Will attempt again later this morning.
[2020-09-02] MEDS: AMLODIPINE 5 MG TABLET 2.5 MG PO (09:56)
[2020-09-02] MEDS: hydroCHLOROthiazide 25 MG TABLET PO (09:57)
[2020-09-02] MEDS: predniSONE 1 MG TABLET PO (09:57)
[2020-09-02] MEDS: CLOPIDOGREL 75 MG TABLET PO (09:57)
[2020-09-02] MEDS: lisinopriL 20 MG TABLET PO (09:57)
[2020-09-02] MEDS: ASPIRIN EC 81 MG TABLET PO (09:57)
[2020-09-02] MEDS: ENOXAPARIN 40 MG/0.4 ML SYRINGE SUBCUT (09:57)
[2020-09-02] MEDS: LEVOTHYROXINE 125 MCG TABLET PO (11:06)
--- NOTE | 2020-09-02 11:11 | PM.DS.1 ---
History of Present Illness History of Present Illness Date Patient Seen: 09/02/20 Chief complaint: slurring his words Narrative: This is a 75-year-old male with hypertension, hyperlipidemia, type 2 diabetes mellitus, a history of TIA and Rheumatoid Arthritis who is admitted for an acute episode of dysarthria. He lives in [place] and was camping locally here with his this morning when they both noticed that he could not pronounce words correctly. He had particular difficulty with the letter S. This began at 7:30 a.m.. He came directly to the ED within the tPA window but the CT angiogram of the neck did not show any stroke and the basilar artery occlusion or stenosis was not in an area that would cause his current symptoms and so the [facility] neurologist recommended no tPA (also because the symptoms were so mild and the dysarthria resolved so quickly). 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 He has neurological findings of a left-sided downgoing Babinski and a right tongue deviation that would appear to match a a right-sided lesion caused by the carotid stenosis on the same side. No matching stroke is seen on the MRI. He will be observed on telemetry, we will obtain an echocardiogram and Plavix has been added to his aspirin as recommended by Neurology. The atorvastatin dose will be increased from 10 mg up to 80 mg and his blood pressure medicines will be continued. The A1c is 9.7. The patient does not appear to be on any treatment for diabetes. Discharge Providers Provider Date of admission: 09/01/20 10:09 Discharge Date: 09/02/20 Consults: 09/01/20 11:28 Consult to Occupational Therapy Evaluate & Treat Comment: Physician Instructions: Evaluate and treat Consult to Speech Therapy Evaluate & Treat Comment: Physician Instructions: Evaluate and treat Discharge provider: Nidia Solano MD Summary Hospital Course Discharge Diagnosis: 1. TIA 2. HYPERTENSION 3. Hyperlipidemia 4. Parkinson's disease 5. Rheumatoid arthritis 6. TIA Hospital Course: Patient is a 75-year-old male who was admitted to the hospital for dysarthria. He and his were camping when he was noted to have difficulty pronouncing words. His speech was slurred. There was noted that he had tongue deviation. The patient underwent an MRI of the brain which showed no evidence of stroke. His atorvastatin was increased to 80 mg. He was placed on aspirin and Plavix. Echocardiogram revealed LV systolic function which was normal with an EF of 55-60%, there was no focal wall motion abnormality, left ventricular size and wall thickness appeared to be normal. There was normal diastolic function and normal filling pressures. The right ventricle was grossly normal in size and systolic function. The left atrium was at upper limits of normal. There was no evidence of interatrial shunt. The mitral valve was mildly calcified with mild mitral regurgitation. The patient's speech improved. His speech was back to baseline. He reports his symptoms lasted a total of 1 hour. He had no further tongue deviation. The patient was deemed appropriate for discharge and arrangements were made for him to discharge home. Status at Discharge Cognitive/behavioral status at discharge: oriented Functional status at discharge: independent ambulation Overall status at discharge: patient is back to baseline Time Spent with Patient Time spent: Less than 30 minutes Exam Vital Signs (past 8 hours): - 09/02/20 05:00 09/02/20 08:00 Temperature 97.9 F 97.8 F Pulse Rate 62 57 L Respiratory Rate 16 16 Blood Pressure 149/74 H 147/76 H Pulse Oximetry 95 96 Oxygen Delivery Method Room Air Oxygen Flow Rate 0 Narrative Exam Narrative: Pleasant gentleman in no obvious distress Lungs: Clear to auscultation Cardiac exam: Regular rate and rhythm normal S1-S2 with a 2/6 systolic ejection murmur Abdomen: Soft and nontender Neuro exam: Nonfocal, NIH SS score of 0 Objective Labs Result Diagrams: 09/02/20 04:45 09/02/20 04:45 Labs: Laboratory Results - last 24 hr 09/01/20 09/01/20 09/01/20 08:30 10:25 15:00 WBC RBC Hgb Hct MCV MCH MCHC RDW Plt Count Neut % (Auto) Lymph % (Auto) Sabine % (Auto) Eos % (Auto) Baso % (Auto) Neut # (Auto) Lymph # (Auto) Sabine # (Auto) Eos # (Auto) Baso # (Auto) Sodium Potassium Chloride Carbon Dioxide BUN Creatinine Estimated GFR BUN/Creatinine Ratio Glucose Hemoglobin A1c 9.7 H Calcium U Opiates 300ng/mL cut Negative Ur Oxycodone Screen Negative Urine Methadone Screen Negative Ur Barbiturates Screen Negative U Tricyclic Antidepress Negative Ur Phencyclidine Scrn Negative Ur Amphetamines Screen Negative U Methamphetamines Scrn Negative Ur MDMA Scrn (Ecstasy) Negative U Benzodiazepines Scrn Negative Urine Cocaine Screen Negative U Marijuana (THC) Screen Negative SARS-CoV-2 (PCR) Negative 09/02/20 09/02/20 04:45 04:45 WBC 8.4 RBC 3.80 L Hgb 12.5 L Hct 35.5 L MCV 93.5 MCH 32.9 MCHC 35.2 RDW 14.8 Plt Count 198 Neut % (Auto) 68.2 Lymph % (Auto) 20.3 L Sabine % (Auto) 5.9 Eos % (Auto) 4.6 H Baso % (Auto) 1.0 Neut # (Auto) 5800 Lymph # (Auto) 1700 Sabine # (Auto) 500 Eos # (Auto) 400 Baso # (Auto) 100 Sodium 135 L Potassium 4.3 Chloride 103 Carbon Dioxide 28 BUN 29 H Creatinine 1.31 H Estimated GFR 53.2 L BUN/Creatinine Ratio 22.1 H Glucose 214 H Hemoglobin A1c Calcium 9.1 U Opiates 300ng/mL cut Ur Oxycodone Screen Urine Methadone Screen Ur Barbiturates Screen U Tricyclic Antidepress Ur Phencyclidine Scrn Ur Amphetamines Screen U Methamphetamines Scrn Ur MDMA Scrn (Ecstasy) U Benzodiazepines Scrn Urine Cocaine Screen U Marijuana (THC) Screen SARS-CoV-2 (PCR) [facility] Medical History (Updated 09/01/20 @ 14:24 by Eligio Chavez MD) Amputation of toe of left foot Hearing loss Hyperlipidemia Hypertension Hypothyroidism Influenza A Parkinsonism Rheumatoid arthritis TIA (transient ischemic attack) Type 2 diabetes mellitus Surgical History (Updated 09/01/20 @ 14:20 by Eligio Chavez MD) H/O amputation of lesser toe History of appendectomy History of lung surgery Family History (Updated 09/01/20 @ 14:22 by Eligio Chavez MD) Father Alcohol abuse Mother Bladder cancer Social History household members: spouse Smoking Status: Never smoker Discharge Assessment & Plan Assessment and Plan Assessment: 1. TIA 2. Type 2 diabetes 3. Hypertension 4. Hyperlipidemia 5. 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 Pulmonary interstitial fibrosis with centrilobular emphysema Plan of Treatment: Discharge home Aspirin and Plavix Follow-up with your PCP next week a possible referral to vascular surgery. Discharge Plan Discharge Plan Patient Disposition: Home Discharge orders & Medications Prescriptions: New clopidogrel 75 mg Tablet 75 mg PO DAILY Qty: 21 RF: 0 aspirin 81 mg Tablet,Delayed Release (Dr/Ec) 81 mg PO DAILY Qty: 30 RF: 0 atorvastatin [Lipitor] 20 mg Tablet 80 mg PO BEDTIME Qty: 30 RF: 0 Continued amlodipine [Norvasc] 2.5 mg tablet 2.5 mg PO DAILY RF: 0 levothyroxine 125 mcg tablet 125 mcg PO DAILY RF: 0 lisinopril-hydrochlorothiazide 20-25 mg tablet 20 - 25 tab PO DAILY RF: 0 prednisone 1 mg tablet 1 mg PO DAILY RF: 0 Novolin 70/30 U-100 Insulin 35 units SUBCUT DAILY RF: 0 Novolin 70/30 U-100 Insulin 25 units SUBCUT BEDTIME RF: 0 Discontinued atorvastatin 10 mg tablet 10 mg PO DAILY RF: 0 Discharge Health Status Multidrug resistant organism: No MDRO Diet/Activity/Treatments Diet: Carb-consistent/Diabetic, Low-sodium and Low-cholesterol Visit Report/Discharge Packet Instructions: DI for Transient Ischemic Attack, Clopidogrel, Aspirin, DI for Carotid Artery Stenosis Discharge Data Attending Provider: Eligio Chavez Quality VTE Deep Vein Thrombosis/Pulmonary Embolism Present on Admission: No
--- NOTE | 2020-09-02 12:22 | PC.NURSE ---
Patient is very eager for discharge and is standing waiting in the room dressed and ready. Discharge instructions and home care handouts reviewed with patient and his . They state understanding and have no further questions or 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 Given printed prescriptions to fill at pharmacy of choice. Patient agrees to schedule follow up appointment with his PCP Dr. Mariscal in [place] to be seen within 1-2 weeks. IV dc'd intact. Instructed to seek emergent care if symptoms return. Escorted out via wheelchair with all his belongings to home with his .
--- NOTE | 2020-09-02 15:55 | CM.DANOTE ---
DCP ASSESSMENT: Patient is a 75 year-old male admitted to hospital with a TIA. PCP is Dr. Mariscal. Primary payer is [employer] & self-pay. Occupational therapy reported patient is at baseline for ADL?s. [employer] ENGINEER Student met with patient and at bedside this date Educated patient on role of social work in discharge planning. Patient reports being independent at baseline with all ADL?s including driving. Patient and were in area to camp with family and plan to return to [place] at time of D/C. Anticipate D/C with at time of D/C. Provider is recommended a PCP follow-up patient aware and reported he would schedule an appointment. PLAN: D/C home with providing transportation DIANA Ortiz MSW Student Discharge Planning/Care Management CM Discharge Assessment Start: 09/02/20 12:52 Freq: Status: Active Protocol: Document 09/02/20 12:53 AL (Rec: 09/02/20 12:54 AL [id number]) Discharge Planning Assessment Assigned Rn Occupational Health DIANA Subramanian Student Contact Information Chantelle Palmer, Advance Directives? No History Provided By Patient,Family Member,Medical Record Has Patient been admitted in last 30 No days? Prior Living Arrangements House Household Members spouse Type of transporation used prior to Drives own vehicle admit Independent with ADL's Yes Is patient alert and oriented? Yes Caregiver for Another No Barriers to Discharge No Discharge Plan Home Transportation Arrangement Chantelle Palmer to provide transporation Referrals Initiated None needed Whiteboard Updated in Patient Room with Yes name and ext. # of Rn Occupational Health Review Status In Process
--- NOTE | 2020-09-12 11:54 | PC.NURSE ---
Late Entry; LR infusion initiated 09/02 at 0124, stopped per discharge order, 1120.
== END 2020-09-02 12:00 | disposition home or self-care (01) ==
LOC: ED 10:10 → AC 10:11
PROVIDERS: Nurse Practitioner Family; Admitting Provider Family Medicine; Emergency Provider Emergency Medicine; Referring Provider Emergency Medicine; Visit Provider Family Medicine
DX: G45.9 Transient cerebral ischemic attack, unspecified (principal); I10 Essential (primary) hypertension; E78.5 Hyperlipidemia, unspecified; E11.9 Type 2 diabetes mellitus without complications; G20 Parkinson's disease; M06.9 Rheumatoid arthritis, unspecified; E03.9 Hypothyroidism, unspecified; Z79.4 Long term (current) use of insulin; Z86.73 Personal history of transient ischemic attack (TIA), and cerebral infarction without residual deficits; Z20.822 Contact with and (suspected) exposure to COVID-19
CPT/HCPCS: 36415; 70450; 70496; 70498; 70548; 70553; 80048; 80305; 80320; 82550; 82962; 83036; 84484; 85025; 85610; 85730; 87635; 93005; 93306; 96360; 96361; 96372; 97165; 99284; C9803; G0378; A9579; J1650; Q9967